=== PATIENT | female | born 1990 | race Hispanic/Latino ===

== ENCOUNTER → 2021-02-27 | Outpatient (CLI) | payer OTHER | END | disposition home or self-care (01) | LOC: DTH 12:29 | PROVIDERS: ATTEND Surgery | DX: E66.01 Morbid (severe) obesity due to excess calories (principal); E66.3 Overweight; K21.9 Gastro-esophageal reflux disease without esophagitis; Z68.43 Body mass index [BMI] 50.0-59.9, adult | CPT/HCPCS: 97803 ==

== ENCOUNTER 2021-05-05 06:32 | Inpatient (IN) | payer OTHER ==
[2021-05-02 10:41] LABS: BASOPHILS % (AUTO) 0.2 % (0.0-5.0); EOSINOPHILS % (AUTO) 0.7 % (0.0-8.0); HEMATOCRIT 40.5 % (36-48); LYMPHOCYTES % (AUTO) 33.4 % (21.0-51.0); MEAN CORPUSCULAR HEMOGLOBIN 30.3 pg (27.0-33.0); MEAN CORPUSCULAR HGB CONC 33.1 g/dL (32.0-36.0); MEAN CORPUSCULAR VOLUME 91.6 fL (79-99); MONOCYTES % (AUTO) 3.9 % (3.0-13.0); NEUTROPHILS % (AUTO) 61.4 % (40.0-77.0); PLATELET COUNT (AUTO) 357 K/uL (130-400); RED BLOOD CELL COUNT(AUTO) 4.42 MIL/uL (4.00-5.50); RED CELL DISTRIBUTION WIDTH 12.4 % (11.0-15.5); WHITE BLOOD COUNT (AUTO) 8.1 K/uL (4.8-10.8)
[2021-05-02] MEDS: CEFAZOLIN SODIUM 2 GM VIAL IV SCH (11:00)
[2021-05-02 11:01] LABS: APPEARANCE,URINE Cloudy (CLEAR); BILIRUBIN,URINE Negative (NEGATIVE); COLOR,URINE Yellow (YELLOW); GLUCOSE, URINE (UA) Negative (NEGATIVE); KETONES,URINE >=80 mg/dL (NEGATIVE); LEUKOCYTE ESTERASE ,URINE Trace (NEGATIVE); NITRATE,URINE Negative (NEGATIVE); OCCULT BLOOD,URINE Nonhemolyzed Trace (NEGATIVE); PROTEIN,URINE Negative (NEGATIVE); UROBILINOGEN,URINE 0.2 mg/dL (0.2-1.0)
[2021-05-02 11:27] LABS: INR 3.96 (0.85-1.15); PARTIAL THROMBOPLASTIN TIME 72.6 SEC (26.3-35.5); PROTHROMBIN TIME 38.1 SEC (9.6-11.6)
[2021-05-02 11:33] LABS: RBC,URINE 0-1 /HPF (0-1); WBC,URINE 0-1 /HPF (0-1)
[2021-05-02 11:34] LABS: BACTERIA,URINE Rare /HPF (None Seen); MUCUS,URINE Rare LPF (None Seen); SQUAMOUS EPITHELIAL CELL,UR Few /HPF (0-2)
[2021-05-02 17:32] VITALS: BP 142/79
[2021-05-03] MEDS: CEFAZOLIN SODIUM 2 GM VIAL IV SCH (11:00)
[2021-05-04] MEDS: CEFAZOLIN SODIUM 2 GM VIAL IV SCH (11:00)
[2021-05-05] VITALS (23 sets, daily range): BP systolic 90–147; BP diastolic 58–89
[~2021-05-05] VITALS: Ht 157.5 cm; Wt 128.2 kg
[~2021-05-05 06:32] MED LIST: MULT-1367 PO
[2021-05-05] MEDS ORDERED: LACTATED RINGERS 1000ML 1,000 ML IV ONE (07:28)
[2021-05-05] MEDS ORDERED: BUPIVACAINE/PF 0.5% 30ML VIAL ONE (07:43)
[2021-05-05] MEDS ORDERED: LIDOCAINE PF 100MG/5ML (2%) SYRINGE 5ML ONE (08:13)
[2021-05-05] MEDS ORDERED: SUCCINYLCHOLINE 200MG/10ML SYR ONE (08:13)
[2021-05-05] MEDS ORDERED: PROPOFOL 10 MG/ML 20ML VIAL IV ONE (08:13)
[2021-05-05] MEDS ORDERED: MIDAZOLAM HCL 1 MG/ML 2ML VIAL ONE (08:14)
[2021-05-05] MEDS ORDERED: ROCURONIUM 10MG/1ML SYR 10 MG/ML ML ONE ×2 (08:14→08:52)
[2021-05-05] MEDS ORDERED: FENTANYL CITRATE PF 50 MCG/1 ML 2ML VIAL ONE ×2 (08:14→09:39)
[2021-05-05 08:15] LABS: INR 1.1 (0.85-1.15); PROTHROMBIN TIME 11.9 SEC (9.6-11.6)
[2021-05-05] MEDS: CEFAZOLIN SODIUM 2 GM VIAL IV SCH ×2 (08:15→11:00)
[2021-05-05 08:17] LABS: PARTIAL THROMBOPLASTIN TIME 28.7 SEC (26.3-35.5)
[2021-05-05] MEDS ORDERED: GLYCOPYRROLATE 1 MG/5 ML SYRINGE ONE (10:00)
[2021-05-05] MEDS ORDERED: DEXAMETHASONE SOD PHOSPHATE 10MG/ML 1ML VIAL ONE (10:00)
[2021-05-05] MEDS ORDERED: ONDANSETRON 4MG INJ ONE (10:00)
[2021-05-05] MEDS ORDERED: NEOSTIGMINE 5MG/5ML SYR IV ONE (10:00)
[2021-05-05] MEDS ORDERED: MEPERIDINE-PF 25 MG/ML SYG ONE ×2 (10:24→10:53)
[2021-05-05] MEDS ORDERED: KETOROLAC 30MG VIAL (30MG/ML) ONE (10:24)
[2021-05-05] MEDS: CEFAZOLIN SODIUM 1 GM VIAL IVP SCH ×3 (10:30→23:57)
[2021-05-05] MEDS ORDERED: ONDANSETRON 4MG INJ IVP PRN (10:30)
[2021-05-05] MEDS: LACTATED RINGERS 1000ML 1,000 ML IV SCH ×2 (11:50→21:44)
[2021-05-05] MEDS: MORPHINE 4 MG SYG IVP PRN ×3 (12:55→23:01)
[2021-05-05] MEDS: ENOXAPARIN SODIUM 30 MG/0.3 ML SQ SCH (21:33)
[2021-05-05] MEDS: FAMOTIDINE 20MG VIAL IV SCH (21:33)
[2021-05-05] MEDS ORDERED: CEFAZOLIN SODIUM 1 GM VIAL ONE (23:40)
[2021-05-06] VITALS: BP 113/64
[2021-05-06 04:00] VITALS: BP 104/63
[2021-05-06 05:20] LABS: BASOPHILS % (AUTO) 0.1 % (0.0-5.0); HEMATOCRIT 36.7 % (36-48); LYMPHOCYTES % (AUTO) 12.3 % (21.0-51.0); MEAN CORPUSCULAR HEMOGLOBIN 30.3 pg (27.0-33.0); MEAN CORPUSCULAR HGB CONC 33.2 g/dL (32.0-36.0); MEAN CORPUSCULAR VOLUME 91.1 fL (79-99); NEUTROPHILS % (AUTO) 81.2 % (40.0-77.0); PLATELET COUNT (AUTO) 319 K/uL (130-400); RED BLOOD CELL COUNT(AUTO) 4.03 MIL/uL (4.00-5.50); RED CELL DISTRIBUTION WIDTH 12.5 % (11.0-15.5); WHITE BLOOD COUNT (AUTO) 14.3 K/uL (4.8-10.8)
[2021-05-06 05:30] LABS: CREATININE 0.5 mg/dL (0.5-1.5); POTASSIUM 3.5 mmol/L (3.5-5.1)
[2021-05-06 08:00] VITALS: BP 118/60
[2021-05-06] MEDS: FAMOTIDINE 20MG VIAL IV SCH (09:55)
[2021-05-06] MEDS: ENOXAPARIN SODIUM 30 MG/0.3 ML SQ SCH (09:56)
[2021-05-06] MEDS: MORPHINE 4 MG SYG IVP PRN (11:06)
[2021-05-06 11:54] VITALS: BP 103/62
[2021-05-06 16:00] VITALS: BP 116/64
== END 2021-05-06 18:00 | disposition home or self-care (01) | DRG 621 ==
LOC: DAHIP 06:32 → 3CH 10:58
PROVIDERS: ADMIT Surgery; ATTEND Surgery
PROC: 0D164ZA Bypass Stomach to Jejunum, Percutaneous Endoscopic Approach (ICD-10-PCS; principal; 2021-05-05 08:00)
DX: E66.01 Morbid (severe) obesity due to excess calories (principal); Z20.822 Contact with and (suspected) exposure to COVID-19; K21.9 Gastro-esophageal reflux disease without esophagitis; Z90.49 Acquired absence of other specified parts of digestive tract; Z83.3 Family history of diabetes mellitus; Z82.49 Family history of ischemic heart disease and other diseases of the circulatory system; Z68.43 Body mass index [BMI] 50.0-59.9, adult
CPT/HCPCS: 36415; 43235; 80048; 81001; 85025; 85610; 85730; 86850; 86900; 86901; 87635; 94760; A4606; G0378; J0330; J0690; J1100; J1650; J1885; J2001; J2175; J2250; J2270; J2405; J2704; J2710; J3010; J3490; J7120

== ENCOUNTER 2021-05-09 09:15 | Emergency (ER) | payer OTHER ==
[~2021-05-09] VITALS: Ht 157.5 cm; Wt 127.0 kg
[2021-05-09 09:16] VITALS: BP 133/91
[2021-05-09 09:44] LABS: BASOPHILS % (AUTO) 0.2 % (0.0-5.0); EOSINOPHILS % (AUTO) 1.8 % (0.0-8.0); HEMATOCRIT 40.4 % (36-48); LYMPHOCYTES % (AUTO) 18.5 % (21.0-51.0); MEAN CORPUSCULAR HEMOGLOBIN 30.1 pg (27.0-33.0); MEAN CORPUSCULAR HGB CONC 32.9 g/dL (32.0-36.0); MEAN CORPUSCULAR VOLUME 91.4 fL (79-99); MONOCYTES % (AUTO) 3.4 % (3.0-13.0); NEUTROPHILS % (AUTO) 75.6 % (40.0-77.0); PLATELET COUNT (AUTO) 385 K/uL (130-400); RED BLOOD CELL COUNT(AUTO) 4.42 MIL/uL (4.00-5.50); RED CELL DISTRIBUTION WIDTH 12.5 % (11.0-15.5); WHITE BLOOD COUNT (AUTO) 13.2 K/uL (4.8-10.8)
[2021-05-09 09:54] LABS: CREATININE 0.6 mg/dL (0.5-1.5); POTASSIUM 3.7 mmol/L (3.5-5.1)
[2021-05-09 09:59] LABS: ALBUMIN 3.2 g/dL (3.5-5.0); BILIRUBIN,TOTAL 0.4 mg/dL (0.2-1.0); TOTAL PROTEIN, SERUM 8.1 g/dL (6.0-8.3)
[2021-05-09] MEDS ORDERED: 0.9%NACL 1000ML 1,000 ML IV SCH (10:00)
[2021-05-09] MEDS ORDERED: ONDANSETRON 4MG INJ IVP SCH (10:00)
[2021-05-09 10:06] LABS: APPEARANCE,URINE SL CLOUDY (CLEAR); BILIRUBIN,URINE MODERATE (NEGATIVE); COLOR,URINE YELLOW (YELLOW); GLUCOSE, URINE (UA) NEGATIVE (NEGATIVE); KETONES,URINE >=80 mg/dL (NEGATIVE); LEUKOCYTE ESTERASE ,URINE NEGATIVE (NEGATIVE); NITRATE,URINE NEGATIVE (NEGATIVE); OCCULT BLOOD,URINE NEGATIVE (NEGATIVE); PROTEIN,URINE 100 mg/dL (NEGATIVE); UROBILINOGEN,URINE 0.2 mg/dL (0.2-1.0)
[2021-05-09 10:27] LABS: BACTERIA,URINE Moderate /HPF (None Seen); WBC,URINE 0-1 /HPF (0-1)
[2021-05-09] MEDS ORDERED: IOHEXOL-350 75 ML VIAL IV ONE (11:59)
== END 2021-05-09 13:41 | disposition home or self-care (01) ==
LOC: EDH 09:22
DX: E86.9 Volume depletion, unspecified (principal); R11.10 Vomiting, unspecified; K95.89 Other complications of other bariatric procedure; R53.83 Other fatigue; Z90.49 Acquired absence of other specified parts of digestive tract; Z98.84 Bariatric surgery status
CPT/HCPCS: 36415; 71045; 71275; 74176; 80053; 81001; 81025; 83605; 83690; 85025; 85378; 86900; 86901; 87077; 87088; 87186; 93005; 96374; 99285; J2405; Q9967